=== PATIENT | female | born 1965 ===

== ENCOUNTER 2022-04-19 02:50 | Inpatient (IN) | payer OTHER ==
[~2022-04-19] VITALS: Ht 167.6 cm; Wt 154.4 kg
[~2022-04-19 02:50] MED LIST: ACET325 PO; ALBU90OI61 INH; AMOCLA875 PO; AZIT250 PO; CEPH500 PO; CIPR500; DIPH50 PO; ESOM20 PO; LOPE2C PO; METO10 PO; OXYACE5T PO; PROM25 PO; PSYL5.85P PO; SULTRIDS PO
[2022-04-19 03:32] LABS: BASOPHILS ABSOLUTE AUTO 0.02 K/mm3 (0.00-0.23); BASOPHILS PERCENT AUTO 0 % (0-2); EOSINOPHILS ABSOLUTE AUTO 0.01 K/mm3 (0.00-0.68); EOSINOPHILS PERCENT AUTO 0 % (0-6); Hematocrit 44.1 % (33.0-51.0); Hemoglobin 14.5 g/dL (11.5-16.0); IMMATURE GRAN ABSOLUTE AUTO 0.03 K/mm3 (0.00-0.10); IMMATURE GRAN PERCENT AUTO 0 % (0-1); LYMPHOCYTES ABSOLUTE AUTO 1.16 K/mm3 (0.84-5.20); LYMPHOCYTES PERCENT AUTO 13 % (21-46); MONOCYTES ABSOLUTE AUTO 0.28 K/mm3 (0.16-1.47); MONOCYTES PERCENT AUTO 3 % (4-13); Mean Corpuscular HGB 29.7 pg (26.0-34.0); Mean Corpuscular HGB Conc 32.9 g/dL (31.5-36.5); Mean Corpuscular Volume 90 fL (80-100); Mean Platelet Volume 11.6 fL (9.1-12.4); NEUTROPHILS PERCENT AUTO 84 % (41-73); Platelet Count 199 K/mm3 (150-400); RDW Coefficient Variation 14.3 % (11.7-14.2); RDW Standard Deviation 47.7 fL (35.1-46.3); Red Blood Cell Count 4.89 M/mm3 (3.80-5.20)
[2022-04-19 03:54] LABS: Albumin, Blood 3.4 g/dL (3.4-5.0); Albumin/Globulin Ratio 0.7 (0.8-1.8); Bilirubin, Total 0.4 mg/dL (0.1-1.0); Bun/Creatinine Ratio 28.3 (12.0-20.0); Calcium, Blood 8.7 mg/dL (8.5-10.1); Creatinine, Blood 0.57 mg/dL (0.40-1.00); Globulin, Blood 4.6 g/dL (2.2-4.0); Potassium, Blood 4.1 mmol/L (3.5-5.5)
[2022-04-19] MEDS ORDERED: MULVITA PO (09:06)
--- NOTE | 2022-04-19 10:30 | NUR ---
REQUESTED THAT IMAGING PUSH IMAGES TO [facility] PER REQUEST FROM DR. AMADOR.
--- NOTE | 2022-04-19 11:17 | NUR ---
PT ARRIVED TO THE ROOM FROM ER AT APPROXIMATELY 0830. AT TIME OF ARRIVAL PT COMPLAINED OF NAUSEA NAD WAS GIVEN ZOFRAN. SHE ALSO REPORTED PAIN WAS 6/10 BUT STATED PAIN WAS TOLERABLE. NG TUBE CONNECTED TO LOW INTERMITTENT SUCTION AND BROWN LIQUID DRAINING FROM THE TUBE. PT'S IS AT THE BEDSIDE FOR SUPPORT.
--- NOTE | 2022-04-19 12:33 | NUR ---
REACHED OUT TO [facility] REGARDING NEED FOR TRANSFER. PER HEEL BUILDER MACHINE THEY ARE UNABLE TO PLACE PT'S ON A LIST AT THIS TIME AND THEY ARE CURRENTLY NOT ACCEPTING TRANSFERS FROM OTHER HOSPITALS. DR. AMADOR NOTIFIED.
--- NOTE | 2022-04-19 18:44 | NUR ---
SHIFT SUMMARY PT ADMITTED FOR HERNIA. PT EXPERIENCING N/V AND HAS AN NG TUBE PLACED IN THE R NARE. NG TUBE TO LOW INTERMITTENT SUCTION. PT IS TO BE COBRA TRANSFERRED TO [facility] FOR SURGERY WHEN A BED IS AVAILABLE. VSS. TREATED FOR PAIN PER EMR.
--- NOTE | 2022-04-20 08:08 | NUR ---
SUMMARY PT CONT WITH NUASEA AND PAIN TONIGHT, ZOFRAN AND DILAUDID REPORTED EFFECTIVE.RECEIVED CALL FROM FACILITY PENDING TRANSFER AND WE ARE STILL WAITING ON BED AVAILABILITY. ADVISED PT.
--- NOTE | 2022-04-21 04:44 | NUR ---
SHIFT SUMMARY: PT REMAINED PAINFUL T/O THE NIGHT. WAS MEDICATED PER EMAR ORDERS. C/O NAUSEA THAT WAS RELIEVED WITH ZOFRAN. NG TUBE HAS MODERATE GREEN DRAINAGE. ABD REMAINS TENDER AND FIRM UPON PALPATION ON RIGHT SIDE. LIMITED TO SIPS AND CHIPS, PER ORDER. PT HAD SLIGHTLY ELEVATED TEMPERATURE AT THE BEGINNING OF SHIFT THAT HAS SINCE RESOLVED. AWAITING COBRA TRANSFER TO [facility]. RESTING AT THIS TIME WITH CALL LIGHT IN REACH. WILL GIVE REPORT TO DAY TIME RN.
--- NOTE | 2022-04-21 17:10 | NUR ---
SHIFT SUMMARY PT CONTINUES TO HAVE PAIN T/O SHIFT REQUIRING IV PAIN MEDICATION. INCREASED CONFUSION DECREASED INTERACTION SO EDUCATED ON THE NEED TO DECREASE DOSE AND START W/SMALLER AMT. PT DID COUGH AND NG TUBE CAME OUT, PT REQUESTING NOT TO PUT IN AGAIN AT THIS TIME. DR AMADOR NOTIFIED, OK TO LEAVE OUT BUT REPLACE FOR N/V. ABD FOLDS RED/YEASTY, PT UP TO SHOWER-AREA CLEANED AND POWDER WILL BE APPLIED ONCE DRY. [facility] UPDATED ON CONTINUED NEED FOR BED.
--- NOTE | 2022-04-21 23:05 | NUR ---
WOUND CARE PANNUS CLEANED AND POWDER APPLIED. ABD IN PLACE TO ABSORB MOISTURE
--- NOTE | 2022-04-22 04:31 | NUR ---
VSS. HR AND RR NOTED TO BE ELEVATED. HR NOTED TO ELEVATE UP TO 130'S WHEN AMBULATING. PT ON 2L O2 TO KEEP O2 SATS >92%. PT HARDLY SLEPT T/O THE NIGHT, RATHER SHE KEPT GETTING OOB TO SIT ON THE EDGE OF THE BED REPETEDLY. THE PT WAS VERY CONFUSED T/O THE NIGHT, BUT REMAINED REDIRECTABLE. MEDICATED FOR PAIN AND NAUSEA MULTIPLE TIMES. PT AMBULATED TO THE BATHROOM MULTIPLE TIMES TO VOID, URINE NOTED TO BE DARK ORANGE. PT HAS BEEN NPO T/O THE NIGHT, MAITENCE FLUIDS RUNNING. SPOKE TO [facility] TO GIVE AN UPDATE ON THE PT, STILL AWAITNG A BED. THE PATIENT IS CURRENTLY RESTING IN BED, IN NO DISTRESS, CALL LIGHT IN REACH, BED ALARM ON FOR SAFETY.
[2022-04-22 09:58] LABS: BASOPHILS ABSOLUTE AUTO 0.11 K/mm3 (0.00-0.23); BASOPHILS PERCENT AUTO 1 % (0-2); EOSINOPHILS ABSOLUTE AUTO 0.01 K/mm3 (0.00-0.68); EOSINOPHILS PERCENT AUTO 0 % (0-6); IMMATURE GRAN ABSOLUTE AUTO 0.05 K/mm3 (0.00-0.10); IMMATURE GRAN PERCENT AUTO 0 % (0-1); LYMPHOCYTES ABSOLUTE AUTO 0.63 K/mm3 (0.84-5.20); LYMPHOCYTES PERCENT AUTO 3 % (21-46); MONOCYTES ABSOLUTE AUTO 0.62 K/mm3 (0.16-1.47); MONOCYTES PERCENT AUTO 3 % (4-13); Mean Corpuscular HGB 29.5 pg (26.0-34.0); Mean Corpuscular HGB Conc 32.6 g/dL (31.5-36.5); Mean Corpuscular Volume 91 fL (80-100); Mean Platelet Volume 11.6 fL (9.1-12.4); NEUTROPHILS ABSOLUTE AUTO 17.02 K/mm3 (1.96-9.15); NEUTROPHILS PERCENT AUTO 92 % (41-73); Platelet Count 218 K/mm3 (150-400); RDW Coefficient Variation 14.5 % (11.7-14.2); RDW Standard Deviation 48.6 fL (35.1-46.3); Red Blood Cell Count 5.08 M/mm3 (3.80-5.20); White Blood Cell Count 18.44 K/mm3 (4.00-11.30)
--- NOTE | 2022-04-22 10:18 | NUR ---
SHIFT ASSESSMENT COMPLETED AT ABOUT 0915. PT IS ORIENTED, BUT DROWSY AND SLOW TO RESPOND. NEURO APPEARS WNL OTHERWISE. ABD IS LARGE, THERE IS REDNESS TO RLQ, THE AREA IS HOT TO THE TOUCH AND FIRM. REDNESS OUTLINED WITH MARKER AT THIS TIME. PT TEMP CHECKED, AND IS 99.6. PT REPORTS PAIN TO ABD, DENIES N/V. PT AT BEDSIDE, BED ALARM ON FOR SAFETY. DR. AMADOR CALLED AT 0930 AND MADE AWARE OF THESE FINDINGS. SEE NEW ORDERS.
[2022-04-22 10:20] LABS: Albumin, Blood 2.4 g/dL (3.4-5.0); Albumin/Globulin Ratio 0.5 (0.8-1.8); Bilirubin, Total 3.8 mg/dL (0.1-1.0); Bun/Creatinine Ratio 27.3 (12.0-20.0); Calcium, Blood 8.7 mg/dL (8.5-10.1); Creatinine, Blood 0.77 mg/dL (0.40-1.00); Globulin, Blood 4.4 g/dL (2.2-4.0); Potassium, Blood 4.1 mmol/L (3.5-5.5); Total Protein, Blood 6.8 g/dL (6.4-8.2)
--- NOTE | 2022-04-22 11:36 | NUR ---
[facility] CALLED AND THIS RN GAVE AN UPDATE ON PT STATUS. NO BEDS AVALIBLE AT THIS TIME. PLAN TO CALL AGAIN IF PT STATUS CHANGES FUTHER.
--- NOTE | 2022-04-22 11:36 | NUR ---
IMAGING CALLED TO PUSH CT RESULTS FROM TODAY 04/22 TO [facility].
--- NOTE | 2022-04-22 12:19 | NUR ---
CT RESULTS PHONED TO DR AMADOR, SEE NEW ORDERS FOR IV ABX COVERAGE
--- NOTE | 2022-04-22 12:24 | NUR ---
CRITICAL LACTIC ACID OF 2.2-DR. AMADOR MADE AWARE. SEE NEW ORDERS.
--- NOTE | 2022-04-22 13:45 | NUR ---
DR. AMADOR IN ROOM AT ABOUT 1315
--- NOTE | 2022-04-22 16:28 | NUR ---
DR. AMADOR AT BEDSIDE. PT TO OR AT THIS TIME, REPORT PASSED TO PRIVATE WEALTH ADVISOR.
--- NOTE | 2022-04-22 16:42 | NUR ---
History, Chart, Medications and Allergies reviewed before start of procedure.Patient confirms PATIENT NPO status and agrees with scheduled surgery.
--- NOTE | 2022-04-22 16:53 | NUR ---
REPORT PASSED TO ALL BAG PATCHER.
--- NOTE | 2022-04-22 20:10 | NUR ---
TRANSFER UPDATE/CANCELLATION CALL AT 1930 FROM [facility] AT [facility] REQUESTING UPDATE WHEN PT OUT OF OR. RETURN NUMBER [phone]. PT RETURNED FROM OR AND THIS RN TO ICU TO GET UPDATE FROM PRIMARY RN. RETURN CALL TO [facility] AT 2004 AND UPDATED ON PT STATUS. [facility] ASKS IF DR. AMADOR CAN CALL MD OLGUIN TO UPDATE TRANSFER TO GET PT APPROPRIATE BED PLACEMENT. NUMBER FOR MD LINE [phone]. THIS RN CALLS DR. AMADOR TO INFORM OF REQUEST. DR. AMADOR STATES THAT TRANSFER IS NO LONGER NEEDED AT THIS TIME AND TO CANCEL TRANSFER. THIS RN CALLS BACK TO [facility] AT [facility] TO UPDATE ON CANCELLATION OF TRANSFER REQUEST. PRIMARY RN RICHI AND ICU PYRIDINE RECOVERY OPERATOR KHURRAM UPDATED.
--- NOTE | 2022-04-22 21:00 | NUR ---
PT ARRIVES TO ICU 7 POST OP AT 1940. PT IN NO APPARENT DISTRESS. REPORT RECEIVED AT BEDSIDE. AND PT'S SON COMES IN TO SEE PT. TEACHING DONE. PT HAS ABDOMINAL DRESSING THAT IS CDI. HAVE MEDICATED PT WITH 50 MCG'S FENTANYL FOR POST OP PAIN AND FOR VENT TOLERANCE. THIS AFFECTIVE. NGT TO LIWS. BROWNISH COLORED DRAINAGE TO NOTE. HAVE DONE CHEST XRAY AND ABDOMINAL XRAY. DR MEDINA GRACIOUSLY LOOKED AT XRAYS, AND STATED ETT AND NGT IN PROPER POSITION AND OK'D TO USE. WILL REVIEW CHART AND PLAN OF CARE FOR THIS PT.
[2022-04-23 00:52] LABS: Source, Urine Foley catheter
[2022-04-23 00:54] LABS: Blood, Urine 2+ (Neg); Glucose Qualitative, Urine Neg (Neg); Ketones, Urine 3+ (Neg); Leukocyte Esterase, Urine 1+ (Neg); Nitrite, Urine Neg (Neg); Protein, Urine 2+ (Neg); Urobilinogen, Urine 4+ (Normal)
[2022-04-23 01:22] LABS: Appearance, Urine Hazy (Clear); Bilirubin, Urine 2+ (Neg); Color, Urine Orange (P-Yellow)
[2022-04-23 01:24] LABS: Bacteria Mod /hpf; Red Blood Cells, Urine 0-2 /hpf (0-2); Squamous Epithelial Cells Mod /hpf (Few)
[2022-04-23 01:25] LABS: Mucus Light (0-Heavy)
[2022-04-23 03:45] LABS: Hematocrit 37.7 % (33.0-51.0); Hemoglobin 12.5 g/dL (11.5-16.0); Mean Corpuscular HGB 29.8 pg (26.0-34.0); Mean Corpuscular HGB Conc 33.2 g/dL (31.5-36.5); Mean Corpuscular Volume 90 fL (80-100); Mean Platelet Volume 11.5 fL (9.1-12.4); Platelet Count 201 K/mm3 (150-400); RDW Coefficient Variation 14.6 % (11.7-14.2); RDW Standard Deviation 48.2 fL (35.1-46.3); White Blood Cell Count 15.61 K/mm3 (4.00-11.30)
[2022-04-23 04:07] LABS: Albumin, Blood 1.6 g/dL (3.4-5.0); Albumin/Globulin Ratio 0.5 (0.8-1.8); Bilirubin, Total 2.9 mg/dL (0.1-1.0); Bun/Creatinine Ratio 23.2 (12.0-20.0); Calcium, Blood 7.7 mg/dL (8.5-10.1); Creatinine, Blood 0.69 mg/dL (0.40-1.00); Globulin, Blood 3.5 g/dL (2.2-4.0); Potassium, Blood 3.8 mmol/L (3.5-5.5); Total Protein, Blood 5.1 g/dL (6.4-8.2)
[2022-04-23 04:31] LABS: BAND PERCENT MAN 10 % (0-8); BASOPHILS PERCENT MAN 0 % (0-2); EOSINOPHILS PERCENT MAN 0 % (0-6); LYMPHOCYTES ABSOLUTE MAN 0.46 K/mm3 (0.84-5.20); LYMPHOCYTES PERCENT MAN 3 % (21-46); METAMYELOCYTE ABSOLUTE MAN 0.15 K/mm3 (0.00-0.00); METAMYELOCYTE PERCENT MAN 1 % (0-0); MONOCYTES ABSOLUTE MAN 0.31 K/mm3 (0.16-1.47); MONOCYTES PERCENT MAN 2 % (4-13); NEUTROPHILS ABSOLUTE MAN 14.67 K/mm3 (1.96-9.15); SEG NEUTROPHILS PERCENT MAN 84 % (41-73); TOTAL CELLS COUNTED 100
--- NOTE | 2022-04-23 06:28 | NUR ---
HAVE MEDICATED PT AGAIN WITH 50 MCG FENTANYL. PT WAS ABLE TO NOD HER HEAD 'YES' TO QUESTION IF SHE WAS EXPERIENCING PAIN. OF NOTE: PT'S DID REMOVE PT'S RING AND TAKE RING HOME WITH HIM WHEN HE LEFT DURING EVENING VISIT.
--- NOTE | 2022-04-23 09:00 | NUR ---
Assumed care of pt at 0700. Report received from Kvng CORDERO. Pt sedated with propofol at 35 mcg/kg/min. Tolerating ventilator well. 7.0 cm ETT placed at 24 cm at teeth. Vent settings ACVC 16/450/5/30%. SpO2 90% or greater. ST per monitor. BP stable. Abd incision dressed with exudry. Saturated with serosanguinous drainage. Dressing intact. Reinforced. Plan to change when wound care orders received.
--- NOTE | 2022-04-23 13:00 | NUR ---
Dr Rivera in to see patient. States there is no additional surgical intervention planned for patient. States that dressing changes may be performed by nursing staff every day and as needed with wet-to-dry dressing. Exudry removed by this RN and metal temperer. Noted large bolus of kerlex packed into deep wound. No sutures or mariluz in place for skin securement. New exudry placed and secured with medipore tape. Call placed to provider to ask for assist with first dressing change. Provider states he will come by later to assist.
--- NOTE | 2022-04-23 13:08 | NUR ---
Pt. is intubated but is responsive. Spouse is present and welcomes my visit. Spouse verbalizes an expectation that the Pt. would soon be extubated. Pt. acknowledges with nods. Spouse is pleasant. Establish rapport and pray for the Pt. Pt. expresses gratitude with a nod. Will remain available to the family.
--- NOTE | 2022-04-23 15:27 | NUR ---
Patient extubated at 1440. Currently 4 LPM NC. SpO2 90% or greater. A&O x 2. Guessed that it was still November and states "I have been here for a while, I have lost time". Pt reoriented. Discussed plan of care with Dr Rivera. Provider states that pt is to remain in ICU overnight. Provider states that surgical site dressing is acceptable and he will come by tomorrow to change it.
--- NOTE | 2022-04-23 17:30 | NUR ---
SUMMARY Neuro/Musc/ADLs: A&O x 3. Answers questions. Follows commands. Verbalizes needs. Pleasant and cooperative with care. Pupils 3 mm PERRL. Moves all extremities with equal strength and range of motion. Pt is able to help with ADLs including oral care and boosting self up in bed. Patient had bedbath today. Pain: Incisional pain, controlled with prescribed dilaudid. Resp: SpO2 90% or greater with 4 LPM NC. Respirations even and unlabored. Cardiac: ST at beginning of shift. HR has improved and pt is now SR, rate 85-90. BP stable. GI: Large amount of GI output through NG tube. Skin: Unchanged from initial assessment. Miconazole powder to perineal folds.
--- NOTE | 2022-04-23 20:00 | NUR ---
ASSUMED CARE OF PT AT 1900. REPORT RECEIVED. PT PRESENTS IN BED. ALERT AND ORIENTED. NO APPARENT DISTRESS. O2 SATURATIONS MAINTAIN > 90 PERCENT. OCCASSIONAL NONPRODUCTIVE COUGH. DRESSING OVER ABDOMEN REMAINS INTACT. WILL REINFORCE IF NEEDED. WILL REVIEW CHART AND PLAN OF CARE FOR THIS PT.
--- NOTE | 2022-04-23 22:30 | NUR ---
MEDICATED PT WITH 1 MG DILAUDID AND RE-EVALUATED PAIN LEVEL. PT STATED HER ABDOMINAL PAIN REMAINED AT 7/10. STATED PAIN LEVEL HAS NEVER BEEN LOWER THAN 6 1/2 OUT OF 10 WITH INTERVENTIONS. DID OPT TO GIVE PT ADDITIONAL 1 MG DILAUDID. PT STATED PAIN LEVEL REDUCED TO 5/10 PRIOR TO HER FALLING ASLEEP. PT MAINTAINS > 90 PERCENT SATURATION. VSS. WILL CONTINUE TO MONITOR.
--- NOTE | 2022-04-24 05:09 | NUR ---
DRESSING CHANGE DONE TO ABDOMINAL WOUND: REMOVED PACKING. INSPECTED WOUND. SOME GRANULATION NOTED. NO FOUL ODOR. SEROUSAINGEOUS DRAINAGE. GENTLE IRRIGATION OF WOUND WITH NORMAL SALINE. WET-TO-DRY DRESSING PER STANDARD PROCEDURE. ONE FULL ROLL 4 INCH KERLEX USED. PT TOLERATES DRESSING CHANGE WELL. COVERED WET TO DRY WITH 2 ABD PADS, AND AFFIXED WITH MEDIPORE TAPE. OF NOTE: PT NOW DOES HAVE HYPOACTIVE BOWEL TONES. HAS BEEN ABLE TO TOLERATE ICE CHIPS WITHOUT NAUSEA. PROVIDED SWABS FOR MOUTH COMFORT. PT STATES SHE HAS ACHIEVED GOOD PAIN MANAGEMENT WITH 2 MG DILAUDID. WILL CONTINUE TO MONITOR PT, AND WILL REPORT OFF TO ONCOMING RN.
--- NOTE | 2022-04-24 07:30 | NUR ---
ASSUMED CARE OF PT AT 0715 BEDSIDE REPORT RECIEVED FROM CONSUELO STODDARD. PT STATES SHE IS COMFORTABLY AND HAS BEEN RESTING WELL. MEDICATED FOR PAIN EVERY 2-3 HOURS THROUGH THE NIGHT WITH GOOD RELIEF. ABD WET TO DRY DRESSING CHANGED AT MIDNIGHT AFTER PT PREMEDICATED, PT TOLERATED DRESSING CHANGE WELL. ASSESSMENT OTHERWISE WNL, CONTINUE TO MONITOR.
--- NOTE | 2022-04-24 10:44 | NUR ---
Pt. is awake in bed and welcomes my visit. Pt. is pleasant and displays motivation to pursue PT and OT. Facilitated a life review and considered matters of barron and belief. Prayed with Pt. Pt. verbalized gratitude for the spiritual care visit.
--- NOTE | 2022-04-24 14:06 | NUR ---
SHIFT SUMMARY NEURO: A/O X4 CARDIAC: SR, BP WNL RESP: 2L NC, LUNGS CTA/DIMINISHED BASES, O2 SAT 89% ON ROOM AIR. ENCOURAGED PULMONARY HYGIENE. IS USE AND DEEP BREATHING/COUGH ENCOURAGED. GI: NGT D/C'D PER MD ORDER. CLEAR LIQUID DIET ORDERED, PT WITH MILD NAUSEA AFTER PO FLUIDS, MEDICATED WITH ZOFRAN WITH GOOD RELIEF. : NUR TO GRAVITY, PATENT AND DRAINING SUKI URINE. SKIN: ABD INCISION, OLD DRESSING REMOVED BY SURGEON, REPLACED BY RN. WET TO DRY WITH KERLIX AND ABD PAD. ABDOMINAL ERYTHEMA IMPROVING. OTHER SKIN INTACT. IV: POWERGLIDE TO LEFT AC, PIV TO RIGHT AC. NS AT 100ML/HR SURGEON TO BEDSIDE. STATUS CHANGED TO SURGICAL. PT/OT ORDER PLACED. , SON AND SISTER TO BEDSIDE. UPDATED ON CURRENT CONDITION AND POC.
--- NOTE | 2022-04-24 17:59 | NUR ---
ASSUMED CARE OF PT THIS EVENING. PT A/O X4. HAD ONE EPISODE OF VOMITING BUT RESOLVED WITH ZOFRAN. PT HAD VERY LARGE LIQUID BM. DILAUDID FOR PAIN IN ABD BUT STATES ABD FEELS MUCH BETTER AFTER BM. PT TRANSFERED TO ROOM 226 VIA BED. NO SIGN OF DISTRESS.
[2022-04-25 04:11] LABS: Hematocrit 36.9 % (33.0-51.0); Hemoglobin 11.7 g/dL (11.5-16.0); Mean Corpuscular HGB 29.3 pg (26.0-34.0); Mean Corpuscular HGB Conc 31.7 g/dL (31.5-36.5); Mean Corpuscular Volume 92 fL (80-100); Mean Platelet Volume 11.1 fL (9.1-12.4); Platelet Count 219 K/mm3 (150-400); RDW Coefficient Variation 14.6 % (11.7-14.2); RDW Standard Deviation 49.5 fL (35.1-46.3); White Blood Cell Count 11.25 K/mm3 (4.00-11.30)
[2022-04-25 04:28] LABS: Bun/Creatinine Ratio 19.1 (12.0-20.0); Calcium, Blood 7.8 mg/dL (8.5-10.1); Creatinine, Blood 0.58 mg/dL (0.40-1.00); Magnesium, Blood 2.2 mg/dL (1.6-2.4); Potassium, Blood 3.1 mmol/L (3.5-5.5)
--- NOTE | 2022-04-25 05:39 | NUR ---
Patient slept well overnight, AAOX3, PRN pain meds given, turned q2, multiple loose stools noted. Dressing dry and intact with minimal serosang drainage noted. Bowel sounds present.
--- NOTE | 2022-04-25 18:10 | NUR ---
SHIFT [facility] POD 3 VENTRAL HERNIA REPAIR. CHANGED WET TO DRY ABDOMINAL DRESSING THIS AM, HAS REMAINED C/D/I T/O SHIFT. TOLERATING FULL LIQUID DIET CURRENTLY, ALTHOUGH HAS HAD LIQUID STOOL FREQUENTLY T/O SHIFT. ATTENDS, LINEN, & BASILIO AREA CLEANED NEEDED. PATIENT WORKED WITH PT THIS SHIFT AND DID WELL, STOOD AT EDGE OF BED FOR A FEW MOMENTS, MINIMAL ASSISTANCE W/ FWW & GB. PAIN SEEMS TO BE IMPROVED, MANAGED PER EMAR. CALLS APPROPRIATELY, WILL REPORT TO ONCOMING RN AT 1900.
[2022-04-26 04:41] LABS: Bun/Creatinine Ratio 11.6 (12.0-20.0); Calcium, Blood 7.5 mg/dL (8.5-10.1); Creatinine, Blood 0.52 mg/dL (0.40-1.00); Potassium, Blood 3.2 mmol/L (3.5-5.5)
--- NOTE | 2022-04-26 06:05 | NUR ---
Patient slept well overnight, PRN pain meds given x2. Loose stools have decreased. Abdomen tender , patient is passing gas. 2L NC , will titrate as tolerated. Patient tolerating liquids and had some snacks. Edema noted in lower extremity, no change from previous assessment.
--- NOTE | 2022-04-26 16:48 | NUR ---
SHIFT SUMMARY POD 4 VENTRAL HERNIA REPAIR. TRANSVERSE ABDOMINAL INCISION W/ WET TO DRY PACKING, GAUZE, & ABD PAD IN PLACE. CHANGED THIS SHIFT PER ORDERS. PATIENT TOLERATED WELL. PAIN MANAGED WITH NORCO PER ORDERS. TOLERATING FULL LIQUID DIET. PATIENT HAVING BM'S PERIODICALLY, HAS SLOWED DOWN SINCE PREVIOUS SHIFTS, STOOL IS MORE OF A SOFT TEXTURE THAN LIQUID, BUT STILL NOT DIARRHEA, NOT FORMED. NUR IN PLACE DRAINING SUKI/TEA COLORED URINE. USES CALL LIGHT APPROPRIATELY, WILL REPORT TO ONCOMING RN AT 1900.
[2022-04-27 04:14] LABS: Bun/Creatinine Ratio 6.9 (12.0-20.0); Calcium, Blood 7.8 mg/dL (8.5-10.1); Creatinine, Blood 0.58 mg/dL (0.40-1.00); Potassium, Blood 3.5 mmol/L (3.5-5.5)
--- NOTE | 2022-04-27 05:37 | NUR ---
Patient slept well overnight, sat in chair for awhile, patient had a couple of loose stools overnight, tolerating intake well. PRN pain meds given. Abdominal dressing clean, dry, and intact. Able to ambulate with 2 nurse assist, able to stand and walk with walker. Position changed Q2. Edema noted in lower extremities, no change from before. Raphael catheter in place, color valerie in start of shift now more of a yellow output at end of shift. No questions or concerns at this time.
[2022-04-27 09:12] LABS: Hematocrit 38.1 % (33.0-51.0); Hemoglobin 11.8 g/dL (11.5-16.0); Mean Corpuscular HGB 28.8 pg (26.0-34.0); Mean Corpuscular Volume 93 fL (80-100); Mean Platelet Volume 11.3 fL (9.1-12.4); NRBC ABSOLUTE 0.02 K/mm3 (0.00-0.02); NRBC Auto 0.2 /100 WBC (0.0-0.2); Platelet Count 272 K/mm3 (150-400); RDW Coefficient Variation 14.8 % (11.7-14.2); RDW Standard Deviation 50.5 fL (35.1-46.3); White Blood Cell Count 11.57 K/mm3 (4.00-11.30)
[2022-04-27 09:51] LABS: BAND PERCENT MAN 3 % (0-8); BASOPHILS PERCENT MAN 0 % (0-2); EOSINOPHILS ABSOLUTE MAN 0.34 K/mm3 (0.00-0.68); EOSINOPHILS PERCENT MAN 3 % (0-6); LYMPHOCYTES % ATYPICAL MANUAL 2 % (0-0); LYMPHOCYTES ABSOLUTE MAN 2.42 K/mm3 (0.84-5.20); LYMPHOCYTES PERCENT MAN 19 % (21-46); MONOCYTES ABSOLUTE MAN 0.11 K/mm3 (0.16-1.47); MONOCYTES PERCENT MAN 1 % (4-13); MYELOCYTE ABSOLUTE MAN 0.34 K/mm3 (0.00-0.00); MYELOCYTE PERCENT MAN 3 % (0-0); NEUTROPHILS ABSOLUTE MAN 8.33 K/mm3 (1.96-9.15); SEG NEUTROPHILS PERCENT MAN 69 % (41-73); TOTAL CELLS COUNTED 100
--- NOTE | 2022-04-27 17:51 | NUR ---
SHIFT SUMMARY PATIENT ALERT AND ORIENTED THROUGHOUT SHIFT. SBA WITH FWW AND GAIT BELT TO AMBULATE IN ROOM, HALLS. SAT UP IN RECLINER MOST OF DAY. TOLERATING REGULAR DIET AND LIQUIDS. SALINE LOCKED EXCEPT FOR ABX. NUR DC'D, VOIDING WELL. MULTIPLE LOOSE BM THIS SHIFT. BANANA FLAKES AND PRN IMMODIUM. ABD WOUND PACKING AND DRESSING CHANGED THIS SHIFT BY DR AMADOR AND THIS RN. VSS, RA. CONTINUE PT/OT AND ABX. FAMILY MEMBER VISITED DURING DINNER.
[2022-04-28 04:39] LABS: Hematocrit 35.1 % (33.0-51.0); Hemoglobin 11.2 g/dL (11.5-16.0); Mean Corpuscular HGB 29.1 pg (26.0-34.0); Mean Corpuscular HGB Conc 31.9 g/dL (31.5-36.5); Mean Corpuscular Volume 91 fL (80-100); NRBC ABSOLUTE 0.02 K/mm3 (0.00-0.02); NRBC Auto 0.1 /100 WBC (0.0-0.2); Platelet Count 285 K/mm3 (150-400); RDW Coefficient Variation 14.7 % (11.7-14.2); RDW Standard Deviation 49.2 fL (35.1-46.3); Red Blood Cell Count 3.85 M/mm3 (3.80-5.20)
[2022-04-28 04:54] LABS: Bun/Creatinine Ratio 7.1 (12.0-20.0); Calcium, Blood 7.6 mg/dL (8.5-10.1); Creatinine, Blood 0.56 mg/dL (0.40-1.00); Potassium, Blood 3.4 mmol/L (3.5-5.5)
[2022-04-28 05:41] LABS: BAND PERCENT MAN 1 % (0-8); BASOPHILS PERCENT MAN 0 % (0-2); EOSINOPHILS ABSOLUTE MAN 0.43 K/mm3 (0.00-0.68); EOSINOPHILS PERCENT MAN 3 % (0-6); LYMPHOCYTES % ATYPICAL MANUAL 1 % (0-0); LYMPHOCYTES ABSOLUTE MAN 1.88 K/mm3 (0.84-5.20); LYMPHOCYTES PERCENT MAN 12 % (21-46); METAMYELOCYTE ABSOLUTE MAN 0.29 K/mm3 (0.00-0.00); METAMYELOCYTE PERCENT MAN 2 % (0-0); MONOCYTES ABSOLUTE MAN 0.29 K/mm3 (0.16-1.47); MONOCYTES PERCENT MAN 2 % (4-13); MYELOCYTE ABSOLUTE MAN 1.45 K/mm3 (0.00-0.00); MYELOCYTE PERCENT MAN 10 % (0-0); NEUTROPHILS ABSOLUTE MAN 10.15 K/mm3 (1.96-9.15); SEG NEUTROPHILS PERCENT MAN 69 % (41-73); TOTAL CELLS COUNTED 100
--- NOTE | 2022-04-28 07:32 | NUR ---
SUMMARY PTS WBC INCREASED. DAY RN LORE AGREES TO FOLLOW UP ON THIS TODAY.
--- NOTE | 2022-04-28 18:08 | NUR ---
SHIFT SUMMARY PATIENT ALERT AND ORIENTED. SBA TO AMBULATE IN HALLS AND TO BATHROOM WITH FWW. UP IN RECLINER ALL DAY. ROUTINE IV ABX FINISHING TONIGHT. ABD WOUND DRESSING CHANGED THIS SHIFT. LOOSE STOOLS IMPROVED THIS SHIFT. THRUSH OF MOUTH TREATED WITH ORAL SWISH AND SWALLOW, SEE EMAR. MEDICATED FOR PAIN PRN. VOIDING WELL. TOLERATING REGULAR DIET AND LIQUIDS.
[2022-04-29 04:19] LABS: Hematocrit 35.6 % (33.0-51.0); Hemoglobin 11.4 g/dL (11.5-16.0); Mean Corpuscular HGB 29.2 pg (26.0-34.0); Mean Corpuscular Volume 91 fL (80-100); Mean Platelet Volume 11.1 fL (9.1-12.4); Platelet Count 290 K/mm3 (150-400); RDW Coefficient Variation 15.1 % (11.7-14.2); RDW Standard Deviation 50.4 fL (35.1-46.3); White Blood Cell Count 11.86 K/mm3 (4.00-11.30)
[2022-04-29 04:48] LABS: Bun/Creatinine Ratio 8.4 (12.0-20.0); Calcium, Blood 7.9 mg/dL (8.5-10.1); Creatinine, Blood 0.59 mg/dL (0.40-1.00); Potassium, Blood 3.7 mmol/L (3.5-5.5)
[2022-04-29 06:33] LABS: BAND PERCENT MAN 1 % (0-8); BASOPHILS PERCENT MAN 0 % (0-2); EOSINOPHILS PERCENT MAN 0 % (0-6); LYMPHOCYTES ABSOLUTE MAN 2.72 K/mm3 (0.84-5.20); LYMPHOCYTES PERCENT MAN 23 % (21-46); METAMYELOCYTE ABSOLUTE MAN 0.23 K/mm3 (0.00-0.00); METAMYELOCYTE PERCENT MAN 2 % (0-0); MONOCYTES ABSOLUTE MAN 0.47 K/mm3 (0.16-1.47); MONOCYTES PERCENT MAN 4 % (4-13); MYELOCYTE ABSOLUTE MAN 0.23 K/mm3 (0.00-0.00); MYELOCYTE PERCENT MAN 2 % (0-0); NEUTROPHILS ABSOLUTE MAN 8.18 K/mm3 (1.96-9.15); SEG NEUTROPHILS PERCENT MAN 68 % (41-73); TOTAL CELLS COUNTED 100
--- NOTE | 2022-04-29 06:53 | NUR ---
SHIFT SUMMARY NO ACUTE CHANGES THROUGH THE NIGHT, VSS, ON RA, DRSG INTACT, PAIN MANAGED WITH PO NORCO, TOLERATING PO INTAKE, VOIDING WNL, PT WAS GIVEN IMMODIUM AY BEDTIME, REFUSED BANANA FLAKES, SHE ONLY REPORTED 1 SM SOFT BM. PT RESTING QUIETLY AT THIS TIME, CALL LIGHT IN REACH
--- NOTE | 2022-04-29 13:11 | NUR ---
Pt. is sitting up in a chair and welcomes my visit. Pt. is pleasant and remembers this rug cutter helper from previous visits. Pt. is unsettled about continued "loose bowels. Listen with empaty and a calming presence. Normalize the Pt. experience. Pt. displays evidence of being an engaged and motivated participant in her recovery, and verbalizes an understanding of the doctor's prognosis. Prayed with Pt. Pt. verbalized gratitude for the spiritual care visit.
--- NOTE | 2022-04-29 16:57 | NUR ---
SUMMARY: PT IS POD5 BOWEL RESECTION. A/O, VSS. PT CONTINUED TO HAVE LOOSE STOOLS TODAY, IMODIUM GIVEN PRN. PT REPORTS THAT STOOL IS THICKENING. DENIES N/V, ANUPAMA DIET. MEDICATED WITH 1 NARCO FOR PAIN Q4. WET TO DRY DRESSING CHANGE COMPLETED PER ORDER. WOUND BED IS WNL, MODERATE AMT SS DRAINAGE. MAT[employer]X DRIER TENDER AND DR. AMADOR SAW PT TODAY TO ASSESS FOR NEED OF WOUND VAC- SEE [employer] DRIER TENDER NOTES. PT DOING WELL WITH PT/0T, WALKED IN HALLS WITH FWW SEVERAL TIMES. NO ACUTE SAFETY CONCERNS AT THIS TIME.
--- NOTE | 2022-04-30 04:03 | NUR ---
POD8 HERNIA REPAIR. ABD DRESSING REMAINS INTACT. VSS. PT SLEPT ON AND OFF T/O THE NIGHT. AMBULATED TO THE BATHROOM MULTIPLE TIMES TO VOID/PASS STOOL. PT AMBULATED IN HALLS INDEP. MEDICATED FOR PAIN ONCE, PT REPORTS MINIMAL DISCOMFORT THIS AM. PLAN FOR PT TO REMAIN ADMITTED WHILE HER ABD WOUND HEALING IS MONITORED, PLAN TO D/C WITH WOUND VAC. PT IS CURRENTLY RESTING, IN NO DISTRESS, CALL LIGHT IN REACH.
--- NOTE | 2022-04-30 16:07 | NUR ---
CHANGED PATIENTS DRESSING. FAMILY MEMBER WHO IS PLANNING TO ASSIST WITH DRESSING CHANGES AT HOME WAS PRESENT DURIN THIS DRESSING CHANGE. PROVIDED INSTRUCTION AND EDUCATION, FAMILY MEMBER VERBALIZED FEELING COMFORTABLE WITH THE DRESSING CHANGE AND UNDERSTANDING THE PROCEDURE.
--- NOTE | 2022-04-30 17:33 | NUR ---
SHIFT SUMMARY NO ACUTE CHANGES THIS SHIFT. PATIENT BEGAN SHIFT HAVING FREQUENT, LOOSE DIARRHEA, HAS TAKEN IMODIUM PER EMAR, HAS NOT HAD ANY BM THIS AFTERNOON. MINIMAL ABDOMINAL PAIN REPORTED, MEDICATED PER EMAR. TOLERATING REGULAR DIET, DENIES N/V. AMBULATING INDEPENDENTLY TO BATHROOM, CHAIR, AND IN HALLWAYS FREQUENTLY. DRESSING CHANGED TODAY, SEE PREVIOUS NOTE. PATIENT IS ANTICIPATING DISHCARGING [facility]/ HOME HEALTH TOMORROW. CALLS APPROPRIATELY, IN REACH. WILL REPORT TO ONCOMING RN.
--- NOTE | 2022-05-01 04:32 | NUR ---
POD9 FOR HERNIA REPAIR. ABD DRESSING IS C/D/I. VSS. PT SLEPT WELL T/O THE NIGHT. AMBULATING INDEP TO THE BATHROOM TO VOID, NO STOOLS NOTED. PT TOLLERATING PO ITNAKE W/O N/V. PT DID NOT REQUIRE PAIN MEDICATION TONIGHT. NO ACUTE EVENTS NOTED. PLAN FOR PT TO D/C HOME TODAY. THE PATIENT IS CURRENTLY SLEEPING, IN NO DISTRESS, CALL LIGHT IN REACH
--- NOTE | 2022-05-01 10:36 | NUR ---
Pt. is sitting up in a recliner and welcomes my visit. Pt. is pleasant and verbalizes optimism that she will be D/C later today. Listen with encouragement and empathy. Normalized the Pt. discharge experience. Prayed with Pt. Pt. verbalized gratitude for the spiritual care visit.
[2022-05-01] MEDS ORDERED: Norco 5-325 Ta1 EACH PO (12:09)
[2022-05-01] MEDS ORDERED: MICONAZOLE NITR85 GM TOP (12:10)
[2022-05-01] MEDS ORDERED: LOPE2C PO (12:10)
[2022-05-01] MEDS ORDERED: VISBIOME 112.51 EACH (12:11)
[2022-05-01] MEDS ORDERED: NYSTATIN100000 U10 MT (12:11)
--- NOTE | 2022-05-01 14:30 | NUR ---
THIS RN CHANGED DRESSING TO ABDOMEN WOUND/INCISION. TISSUE APPEARS PINK & MOIST. WET TO DRY DRESSINGPALCED, ABD PAD OVER TOP AND TAPED DOWN. PREVIOUS DRESSING HAD MODERATE/HEAVY STAURATION. DISCUSSES WOUND CARE AND DRESSING CHANGES IN DEPTH WITH PATIENT.
[2022-05-01 15:07] LABS: C DIFFICILE DNA NEGATIVE (Negative)
--- NOTE | 2022-05-01 15:35 | NUR ---
DISCHARGE PATIENT CLEARED TO DISCHARGE HOME. ABDOMINAL PAIN IS MANAGED WELL PER EMAR. PATIENT HAVING DIARHEA OFF AND ON, C DIFF WAS NEGATIVE. AMBULATING WELL INDEPENDENTLY. EATING, DRINKING, & VOIDING WELL. DISCUSSED WOUND CARE IN DEPTH WITH PATIENT AND FAMI;Y MEMEBER TODAY, WELL YESTERDAY. PATIENT AND FAMILY MEMBER REPORT FEELING COMFORTABLE WITH WOUND CARE AT HOME. HAS FOLLOW UP APPOINT SCHEDULED FOR 05/06/22 AT W[facility] CENTER. DISCUSSED DISCHARGE INSTRUCTIONS & SENT WITH PATIENT. PATIENT IS WAITING FOR RIDE AT THIS TIME, PLAN TO ESCORT OUT VIA W/C.
--- NOTE | 2022-05-01 16:25 | NUR ---
ESCORTED OUT VIA W/C
== END 2022-05-01 16:27 | disposition home or self-care (01) | DRG 329 ==
LOC: ER 02:50 → ICUE 05:35 → SURS 05:35 → ICUE 04-22 17:08 → SURS 04-24 17:15
PROVIDERS: Family Medicine; Internal Medicine; Nurse Practitioner Acute Care; Student in an Organized Health Care Education/Training Program; ADMIT Surgery
PROC: 0DB80ZZ Excision of Small Intestine, Open Approach (ICD-10-PCS; 2022-04-22)
PROC: 0WPF0JZ Removal of Synthetic Substitute from Abdominal Wall, Open Approach (ICD-10-PCS; principal; 2022-04-22 17:00)
DX: K43.0 Incisional hernia with obstruction, without gangrene (principal); K55.029 Acute infarction of small intestine, extent unspecified; Z68.43 Body mass index [BMI] 50.0-59.9, adult; R19.7 Diarrhea, unspecified; R73.9 Hyperglycemia, unspecified; E87.6 Hypokalemia; K63.89 Other specified diseases of intestine; E66.01 Morbid (severe) obesity due to excess calories; F17.210 Nicotine dependence, cigarettes, uncomplicated; Z79.51 Long term (current) use of inhaled steroids; Z88.8 Allergy status to other drugs, medicaments and biological substances; Z88.5 Allergy status to narcotic agent; Z88.1 Allergy status to other antibiotic agents; Z88.2 Allergy status to sulfonamides; Z90.49 Acquired absence of other specified parts of digestive tract; Z87.820 Personal history of traumatic brain injury; Z79.899 Other long term (current) drug therapy; Z98.890 Other specified postprocedural states
CPT/HCPCS: 36415; 71045; 74177; 80048; 80053; 81001; 82947; 83036; 83605; 83690; 83735; 84703; 85025; 85027; 87086; 87493; 88307; 93005; 93010; 94002; 94003; 94760; 94762; 96374-59; 96375; 96376; 97110; 97116; 97162; 97166; 97530; 97535; 99285-25; A9270; J0744; J1100; J1170; J1650; J2370; J2405; J2704; J2765; J3010; J3480; J7030; J7050; J7120; Q9967

== ENCOUNTER 2022-05-06 00:30 | Day surgery (SDC) | payer OTHER ==
[~2022-05-06 00:30] MED LIST changes: +MICONAZOLE NITR85 GM TOP; +MULVITA PO; +NYSTATIN100000 U10 MT; +Norco 5-325 Ta1 EACH PO; +VISBIOME 112.51 EACH
== END 2022-05-06 22:53 | disposition home or self-care (01) ==
LOC: WOUND 00:30
DX: T81.31XA Disruption of external operation (surgical) wound, not elsewhere classified, initial encounter (principal); S31.609A Unspecified open wound of abdominal wall, unspecified quadrant with penetration into peritoneal cavity, initial encounter
CPT/HCPCS: 99406

== ENCOUNTER 2022-05-13 00:31 | Day surgery (SDC) | payer OTHER | END 2022-05-13 23:40 | disposition home or self-care (01) | LOC: WOUND 00:31 | DX: T81.32XA Disruption of internal operation (surgical) wound, not elsewhere classified, initial encounter (principal); S31.609A Unspecified open wound of abdominal wall, unspecified quadrant with penetration into peritoneal cavity, initial encounter; Z87.891 Personal history of nicotine dependence | CPT/HCPCS: 99406; A9270; G0463 ==

== ENCOUNTER 2022-05-20 00:39 | Day surgery (SDC) | payer OTHER | END 2022-05-20 23:31 | disposition home or self-care (01) | LOC: WOUND 00:39 | DX: T81.31XA Disruption of external operation (surgical) wound, not elsewhere classified, initial encounter (principal); Y83.8 Other surgical procedures as the cause of abnormal reaction of the patient, or of later complication, without mention of misadventure at the time of the procedure; E66.01 Morbid (severe) obesity due to excess calories; Z87.891 Personal history of nicotine dependence; Z68.42 Body mass index [BMI] 45.0-49.9, adult | CPT/HCPCS: A9270; G0463 ==

== ENCOUNTER 2022-05-28 02:02 | Day surgery (SDC) | payer OTHER | END 2022-05-28 22:47 | disposition home or self-care (01) | LOC: WOUND 02:02 | DX: T81.32XA Disruption of internal operation (surgical) wound, not elsewhere classified, initial encounter (principal); E66.01 Morbid (severe) obesity due to excess calories; S31.609A Unspecified open wound of abdominal wall, unspecified quadrant with penetration into peritoneal cavity, initial encounter; Z87.891 Personal history of nicotine dependence | CPT/HCPCS: 99406; G0463 ==

== ENCOUNTER 2022-06-04 00:41 | Day surgery (SDC) | payer OTHER | END 2022-06-04 22:41 | disposition home or self-care (01) | LOC: WOUND 00:41 | DX: T81.32XA Disruption of internal operation (surgical) wound, not elsewhere classified, initial encounter (principal); Z87.891 Personal history of nicotine dependence | CPT/HCPCS: 99406; G0463 ==

== ENCOUNTER 2022-06-12 01:47 | Day surgery (SDC) | payer OTHER | END 2022-06-12 23:07 | disposition home or self-care (01) | LOC: WOUND 01:47 | DX: T81.31XD Disruption of external operation (surgical) wound, not elsewhere classified, subsequent encounter (principal); S31.609A Unspecified open wound of abdominal wall, unspecified quadrant with penetration into peritoneal cavity, initial encounter; Z87.891 Personal history of nicotine dependence | CPT/HCPCS: G0463 ==

== ENCOUNTER 2022-06-19 02:19 | Day surgery (SDC) | payer OTHER | END 2022-06-19 22:58 | disposition home or self-care (01) | LOC: WOUND 02:19 | DX: T81.32XA Disruption of internal operation (surgical) wound, not elsewhere classified, initial encounter (principal); Z87.891 Personal history of nicotine dependence ==

== ENCOUNTER 2022-06-22 00:10 | Day surgery (SDC) | payer OTHER | END 2022-06-22 22:41 | disposition home or self-care (01) | LOC: WOUND 00:10 | DX: T81.31XD Disruption of external operation (surgical) wound, not elsewhere classified, subsequent encounter (principal); Y83.8 Other surgical procedures as the cause of abnormal reaction of the patient, or of later complication, without mention of misadventure at the time of the procedure; S31.609D Unspecified open wound of abdominal wall, unspecified quadrant with penetration into peritoneal cavity, subsequent encounter; Z87.891 Personal history of nicotine dependence ==

== ENCOUNTER 2022-06-24 03:40 | Day surgery (SDC) | payer OTHER | END 2022-06-24 23:00 | disposition home or self-care (01) | LOC: WOUND 03:40 | DX: T81.31XD Disruption of external operation (surgical) wound, not elsewhere classified, subsequent encounter (principal); Y83.8 Other surgical procedures as the cause of abnormal reaction of the patient, or of later complication, without mention of misadventure at the time of the procedure; S31.609D Unspecified open wound of abdominal wall, unspecified quadrant with penetration into peritoneal cavity, subsequent encounter; X58.XXXD Exposure to other specified factors, subsequent encounter; Z87.891 Personal history of nicotine dependence | CPT/HCPCS: A9270 ==

== ENCOUNTER 2022-06-26 01:28 | Day surgery (SDC) | payer OTHER | END 2022-06-26 22:56 | disposition home or self-care (01) | LOC: WOUND 01:28 | DX: T81.31XD Disruption of external operation (surgical) wound, not elsewhere classified, subsequent encounter (principal); S31.609D Unspecified open wound of abdominal wall, unspecified quadrant with penetration into peritoneal cavity, subsequent encounter; Z87.891 Personal history of nicotine dependence ==

== ENCOUNTER 2022-06-29 00:33 | Day surgery (SDC) | payer OTHER | END 2022-06-29 22:51 | disposition home or self-care (01) | LOC: WOUND 00:33 | DX: T81.31XD Disruption of external operation (surgical) wound, not elsewhere classified, subsequent encounter (principal); Y83.8 Other surgical procedures as the cause of abnormal reaction of the patient, or of later complication, without mention of misadventure at the time of the procedure; S31.609D Unspecified open wound of abdominal wall, unspecified quadrant with penetration into peritoneal cavity, subsequent encounter; X58.XXXD Exposure to other specified factors, subsequent encounter; Z87.891 Personal history of nicotine dependence ==

== ENCOUNTER 2022-07-01 02:17 | Day surgery (SDC) | payer OTHER | END 2022-07-01 23:02 | disposition home or self-care (01) | LOC: WOUND 02:17 | DX: T81.31XD Disruption of external operation (surgical) wound, not elsewhere classified, subsequent encounter (principal); Y83.8 Other surgical procedures as the cause of abnormal reaction of the patient, or of later complication, without mention of misadventure at the time of the procedure; S31.609D Unspecified open wound of abdominal wall, unspecified quadrant with penetration into peritoneal cavity, subsequent encounter; X58.XXXD Exposure to other specified factors, subsequent encounter; Z87.891 Personal history of nicotine dependence | CPT/HCPCS: 99406 ==

== ENCOUNTER 2022-07-03 02:06 | Day surgery (SDC) | payer OTHER | END 2022-07-03 22:48 | disposition home or self-care (01) | LOC: WOUND 02:06 | DX: T81.32XA Disruption of internal operation (surgical) wound, not elsewhere classified, initial encounter (principal); E66.01 Morbid (severe) obesity due to excess calories; Z68.42 Body mass index [BMI] 45.0-49.9, adult; Z87.891 Personal history of nicotine dependence; S31.609A Unspecified open wound of abdominal wall, unspecified quadrant with penetration into peritoneal cavity, initial encounter | CPT/HCPCS: 99406; A9270 ==

== ENCOUNTER 2022-07-06 01:12 | Day surgery (SDC) | payer OTHER | END 2022-07-06 22:57 | disposition home or self-care (01) | LOC: WOUND 01:12 | DX: T81.31XA Disruption of external operation (surgical) wound, not elsewhere classified, initial encounter (principal); S31.609A Unspecified open wound of abdominal wall, unspecified quadrant with penetration into peritoneal cavity, initial encounter; Z87.891 Personal history of nicotine dependence; Z88.2 Allergy status to sulfonamides; X58.XXXA Exposure to other specified factors, initial encounter ==

== ENCOUNTER 2022-07-08 02:36 | Day surgery (SDC) | payer OTHER | END 2022-07-08 22:50 | disposition home or self-care (01) | LOC: WOUND 02:36 | DX: T81.32XA Disruption of internal operation (surgical) wound, not elsewhere classified, initial encounter (principal); Z87.891 Personal history of nicotine dependence ==

== ENCOUNTER 2022-07-15 01:19 | Day surgery (SDC) | payer OTHER | END 2022-07-15 23:03 | disposition home or self-care (01) | LOC: WOUND 01:19 | DX: T81.89XA Other complications of procedures, not elsewhere classified, initial encounter (principal); Z87.891 Personal history of nicotine dependence | CPT/HCPCS: G0463 ==

== ENCOUNTER 2022-07-31 01:41 | Day surgery (SDC) | payer OTHER | END 2022-07-31 22:59 | disposition home or self-care (01) | LOC: WOUND 01:41 | DX: S31.609A Unspecified open wound of abdominal wall, unspecified quadrant with penetration into peritoneal cavity, initial encounter (principal); X58.XXXA Exposure to other specified factors, initial encounter; T81.31XD Disruption of external operation (surgical) wound, not elsewhere classified, subsequent encounter; Y83.8 Other surgical procedures as the cause of abnormal reaction of the patient, or of later complication, without mention of misadventure at the time of the procedure; Z87.891 Personal history of nicotine dependence | CPT/HCPCS: G0463 ==

== ENCOUNTER 2022-08-07 00:40 | Day surgery (SDC) | payer OTHER | END 2022-08-08 22:41 | disposition home or self-care (01) | LOC: WOUND 00:40 | DX: T81.31XD Disruption of external operation (surgical) wound, not elsewhere classified, subsequent encounter (principal); S31.609A Unspecified open wound of abdominal wall, unspecified quadrant with penetration into peritoneal cavity, initial encounter; Z87.891 Personal history of nicotine dependence | CPT/HCPCS: G0463 ==

== ENCOUNTER 2022-08-14 01:03 | Day surgery (SDC) | payer OTHER | END 2022-08-16 22:41 | disposition home or self-care (01) | LOC: WOUND 01:03 | DX: S31.609A Unspecified open wound of abdominal wall, unspecified quadrant with penetration into peritoneal cavity, initial encounter (principal); X58.XXXA Exposure to other specified factors, initial encounter; T81.31XD Disruption of external operation (surgical) wound, not elsewhere classified, subsequent encounter; Y83.8 Other surgical procedures as the cause of abnormal reaction of the patient, or of later complication, without mention of misadventure at the time of the procedure; Z87.891 Personal history of nicotine dependence; E66.01 Morbid (severe) obesity due to excess calories; Z68.42 Body mass index [BMI] 45.0-49.9, adult | CPT/HCPCS: A9270; G0463 ==

== ENCOUNTER 2022-08-21 02:41 | Day surgery (SDC) | payer OTHER | END 2022-08-23 22:53 | disposition home or self-care (01) | LOC: WOUND 02:41 | DX: S31.609A Unspecified open wound of abdominal wall, unspecified quadrant with penetration into peritoneal cavity, initial encounter (principal); X58.XXXA Exposure to other specified factors, initial encounter; T81.31XD Disruption of external operation (surgical) wound, not elsewhere classified, subsequent encounter; Y83.8 Other surgical procedures as the cause of abnormal reaction of the patient, or of later complication, without mention of misadventure at the time of the procedure; Z87.891 Personal history of nicotine dependence | CPT/HCPCS: G0463 ==

== ENCOUNTER 2022-08-28 03:40 | Day surgery (SDC) | payer OTHER | END 2022-08-31 23:11 | disposition home or self-care (01) | LOC: WOUND 03:40 | DX: T81.31XD Disruption of external operation (surgical) wound, not elsewhere classified, subsequent encounter (principal); Y83.9 Surgical procedure, unspecified as the cause of abnormal reaction of the patient, or of later complication, without mention of misadventure at the time of the procedure; Z87.891 Personal history of nicotine dependence; X58.XXXD Exposure to other specified factors, subsequent encounter | CPT/HCPCS: A9270; G0463 ==

== ENCOUNTER → 2022-09-04 | Day surgery (SDC) | payer OTHER | LOC: WOUND 03:22 | DX: S31.109A Unspecified open wound of abdominal wall, unspecified quadrant without penetration into peritoneal cavity, initial encounter (principal); Z87.891 Personal history of nicotine dependence; X58.XXXA Exposure to other specified factors, initial encounter | CPT/HCPCS: A9270; G0463 ==

== ENCOUNTER 2022-10-02 00:59 | Day surgery (SDC) | payer OTHER | END 2022-10-02 22:41 | disposition home or self-care (01) | LOC: WOUND 00:59 | DX: T81.32XA Disruption of internal operation (surgical) wound, not elsewhere classified, initial encounter (principal); S31.609A Unspecified open wound of abdominal wall, unspecified quadrant with penetration into peritoneal cavity, initial encounter; Z87.891 Personal history of nicotine dependence | CPT/HCPCS: A9270; G0463 ==

== ENCOUNTER 2022-10-23 03:11 | Day surgery (SDC) | payer OTHER | END 2022-10-23 22:47 | disposition home or self-care (01) | LOC: WOUND 03:11 | DX: Z48.00 Encounter for change or removal of nonsurgical wound dressing (principal); Z87.891 Personal history of nicotine dependence | CPT/HCPCS: G0463 ==